=== PATIENT | female | born 1960 | race Caucasian/White ===

== ENCOUNTER 2023-06-06 07:50 | Inpatient (IN) | payer MEDICARE ==
[2023-06-06] MEDS ORDERED: Ondansetron 4 MG/2 ML SDV IVPUSH PRN ×2 (08:09→09:51)
[2023-06-06 08:15] LABS: BASOPHILS ABSOLUTE AUTO 0.09 K/uL (0.00-0.20); BASOPHILS PERCENT AUTO 0.4 % (0.0-2.0); EOSINOPHILS ABSOLUTE AUTO 0.18 K/uL (0.00-0.50); EOSINOPHILS PERCENT AUTO 0.8 % (0.0-5.0); HEMATOCRIT 41.3 % (34.0-46.0); HEMOGLOBIN 14.5 g/dL (11.7-15.5); LYMPHOCYTES ABSOLUTE AUTO 1.78 K/uL (0.50-3.50); MEAN CORPUSCULAR HEMOGLOBIN 32.2 pg (28.2-33.3); MEAN CORPUSCULAR HGB CONC 35.1 g/dL (31.7-36.0); MEAN CORPUSCULAR VOLUME 91.6 fL (84.0-98.0); MONOCYTES ABSOLUTE AUTO 1.99 K/uL (0.00-1.00); MONOCYTES PERCENT AUTO 8.9 % (2.0-14.0); NEUTROPHILS ABSOLUTE AUTO 18.31 K/uL (1.40-7.00); NEUTROPHILS PERCENT AUTO 81.9 % (45.0-80.0); PLATELET COUNT,PLT 329 K/uL (150-350); RED BLOOD CELL COUNT 4.51 M/uL (3.77-5.09); RED CELL DISTRIBUTION WIDTH 12.8 % (11.2-14.1); WHITE BLOOD CELL COUNT,WBC 22.4 K/uL (4.0-10.2)
[2023-06-06] MEDS: Sodium Chloride 0.9% 10 ML Syringe FLUSH PRN ×3 (08:16→09:28)
[2023-06-06] MEDS: HYDROmorphone 0.5 MG/0.5 ML Syringe IVPUSH PRN ×2 (08:16→09:27)
[2023-06-06 08:31] LABS: ALANINE AMINOTRANSFERASE,ALT 72 U/L (12-78); ALBUMIN 3.9 g/dL (3.4-5.0); ALKALINE PHOSPHATASE 148 IU/L (46-116); ASPARTATE AMNIOTRANSFERASE,AST 55 U/L (15-37); BILIRUBIN TOTAL 0.4 mg/dL (0.2-1.0); BLOOD UREA NITROGEN,BUN 13 mg/dL (7-18); CALCIUM 9.6 mg/dL (8.5-10.1); CARBON DIOXIDE,CO2 25.1 mmol/L (21.0-32.0); CHLORIDE,CL 98 mmol/L (98-107); CREATINE KINASE,CK 109 U/L (26-308); GLUCOSE RANDOM 161 mg/dL (70-99); POTASSIUM,K 3.4 mmol/L (3.5-5.1); PROTEIN TOTAL,TP 7.8 g/dL (6.4-8.2); SODIUM,NA 138 mmol/L (136-145)
[2023-06-06 08:34] LABS: ANION GAP 18.3 meq/L (7-15); ESTIMATED GFR 71 mL/min (>=60)
[2023-06-06] MEDS ORDERED: HYDROmorphone 0.5 MG/0.5 ML Syringe IVPUSH PRN (09:51)
[2023-06-06] MEDS ORDERED: VANCOmycin 1.5 GM/300 ML 1.5 GM in Premix Bag 1 BAG IV SCH (10:00)
[2023-06-06] MEDS ORDERED: Sodium Chloride 0.9% 1,000 ML IV ONE (10:01)
[2023-06-06] MEDS ORDERED: Sodium Chloride 0.9% 10 ML Syringe FLUSH PRN (10:01)
[2023-06-06 10:57] LABS: PROTHROMBIN TIME 9.5 SEC (9.0-11.1)
[2023-06-06] MEDS ORDERED: VANCOmycin 1.5 GM/300 ML 1.5 GM in Premix Bag 1 BAG IV ONE (11:00)
[2023-06-06 11:02] LABS: LACTIC ACID 2.3 mmol/L (0.4-2.0)
[2023-06-06] MEDS: methylPREDNISolone Sodium Succinate 40 MG/1 ML SDV IVPUSH SCH (11:24)
[2023-06-06] MEDS: Acetaminophen 500 MG Tab PO PRN ×2 (12:53→20:00)
[2023-06-06 17:03] LABS: APPEARANCE,URINE CLEAR; BILIRUBIN,URINE NEGATIVE (NEGATIVE); COLOR,URINE YELLOW; GLUCOSE,URINE NEGATIVE (NEGATIVE); KETONES,URINE NEGATIVE (NEGATIVE); LEUKOCYTE ESTERASE,URINE NEGATIVE (NEGATIVE); NITRITE,URINE NEGATIVE (NEGATIVE); OCCULT BLOOD,URINE MODERATE (NEGATIVE); PH,URINE 5.5 (5.0-9.0); PROTEIN,URINE 100 mg/dL (NEGATIVE); UROBILINOGEN,URINE 0.2 E.U./dL (0.2-1.0)
[2023-06-06 17:11] LABS: EPITHELIAL CELLS,URINE FEW /LPF; HYALINE CASTS,URINE FEW; WBC,URINE 0-5 /HPF
[2023-06-07] MEDS: Citalopram 20 MG Tab PO SCH (07:31)
[2023-06-07] MEDS: atorvaSTATin 40 MG Tab PO SCH (07:31)
[2023-06-07] MEDS: Acetaminophen 500 MG Tab PO PRN ×2 (07:31→17:15)
[2023-06-07] MEDS: Ezetimibe 10 MG Tab PO SCH (07:32)
[2023-06-07] MEDS: Hydrochlorothiazide 25 MG Tab PO SCH (07:32)
[2023-06-07] MEDS: amLODIPine 5 MG Tab PO SCH (07:32)
[2023-06-07] MEDS: Losartan 50 MG Tab PO SCH (07:32)
[2023-06-07] MEDS: methylPREDNISolone Sodium Succinate 40 MG/1 ML SDV IVPUSH SCH (07:33)
[2023-06-07] MEDS: Sodium Chloride 0.9% 10 ML Syringe FLUSH PRN ×2 (07:35→11:55)
[2023-06-07] MEDS ORDERED: Non-Formulary Medication 1 Each PO SCH (08:00)
[2023-06-07 08:07] LABS: BASOPHILS ABSOLUTE AUTO 0.04 K/uL (0.00-0.20); BASOPHILS PERCENT AUTO 0.2 % (0.0-2.0); EOSINOPHILS ABSOLUTE AUTO 0.01 K/uL (0.00-0.50); HEMATOCRIT 36.7 % (34.0-46.0); HEMOGLOBIN 12.9 g/dL (11.7-15.5); LYMPHOCYTES ABSOLUTE AUTO 1.57 K/uL (0.50-3.50); LYMPHOCYTES PERCENT AUTO 6.9 % (10.0-50.0); MEAN CORPUSCULAR HEMOGLOBIN 32.7 pg (28.2-33.3); MEAN CORPUSCULAR HGB CONC 35.1 g/dL (31.7-36.0); MEAN CORPUSCULAR VOLUME 92.9 fL (84.0-98.0); MONOCYTES ABSOLUTE AUTO 1.87 K/uL (0.00-1.00); MONOCYTES PERCENT AUTO 8.2 % (2.0-14.0); NEUTROPHILS ABSOLUTE AUTO 19.39 K/uL (1.40-7.00); NEUTROPHILS PERCENT AUTO 84.7 % (45.0-80.0); PLATELET COUNT,PLT 306 K/uL (150-350); RED BLOOD CELL COUNT 3.95 M/uL (3.77-5.09); RED CELL DISTRIBUTION WIDTH 12.6 % (11.2-14.1); WHITE BLOOD CELL COUNT,WBC 22.9 K/uL (4.0-10.2)
[2023-06-07] MEDS ORDERED: VANCOmycin 1.5 GM/300 ML 1.5 GM in Premix Bag 1 BAG IV SCH (11:00)
[2023-06-07] MEDS ORDERED: Vancomycin 1.5 GM in Sodium Chloride 0.9% 500 ML IV SCH (11:00)
[2023-06-08] MEDS: amLODIPine 5 MG Tab PO SCH (07:05)
[2023-06-08] MEDS: Citalopram 20 MG Tab PO SCH (07:05)
[2023-06-08] MEDS: Ezetimibe 10 MG Tab PO SCH (07:05)
[2023-06-08] MEDS: methylPREDNISolone Sodium Succinate 40 MG/1 ML SDV IVPUSH SCH (07:05)
[2023-06-08] MEDS: Sodium Chloride 0.9% 10 ML Syringe FLUSH PRN (07:05)
[2023-06-08] MEDS: Hydrochlorothiazide 25 MG Tab PO SCH (07:05)
[2023-06-08 07:06] VITALS: BP 155/72; PULSE 65
[2023-06-08] MEDS: Losartan 50 MG Tab PO SCH (07:06)
[2023-06-08] MEDS: atorvaSTATin 40 MG Tab PO SCH (07:06)
[2023-06-08 07:23] LABS: BASOPHILS ABSOLUTE AUTO 0.04 K/uL (0.00-0.20); BASOPHILS PERCENT AUTO 0.2 % (0.0-2.0); EOSINOPHILS ABSOLUTE AUTO 0.02 K/uL (0.00-0.50); EOSINOPHILS PERCENT AUTO 0.1 % (0.0-5.0); HEMATOCRIT 37.4 % (34.0-46.0); HEMOGLOBIN 12.9 g/dL (11.7-15.5); LYMPHOCYTES ABSOLUTE AUTO 2.48 K/uL (0.50-3.50); MEAN CORPUSCULAR HEMOGLOBIN 32.2 pg (28.2-33.3); MEAN CORPUSCULAR HGB CONC 34.5 g/dL (31.7-36.0); MEAN CORPUSCULAR VOLUME 93.3 fL (84.0-98.0); MONOCYTES PERCENT AUTO 7.9 % (2.0-14.0); NEUTROPHILS ABSOLUTE AUTO 13.73 K/uL (1.40-7.00); NEUTROPHILS PERCENT AUTO 77.8 % (45.0-80.0); PLATELET COUNT,PLT 318 K/uL (150-350); RED BLOOD CELL COUNT 4.01 M/uL (3.77-5.09); RED CELL DISTRIBUTION WIDTH 12.7 % (11.2-14.1); WHITE BLOOD CELL COUNT,WBC 17.7 K/uL (4.0-10.2)
== END 2023-06-08 08:55 | disposition home or self-care (01) | DRG 159 ==
LOC: LL.ED 07:50 → LL.MS 09:35
PROVIDERS: ADMIT Emergency Medicine; ATTEND Emergency Medicine
DX: K05.219 Aggressive periodontitis, localized, unspecified severity (principal); M26.69 Other specified disorders of temporomandibular joint; Z88.0 Allergy status to penicillin; K04.7 Periapical abscess without sinus; Z79.899 Other long term (current) drug therapy
CPT/HCPCS: 36415; 70450; 71045; 72125; 80053; 80202; 81001; 82550; 83605; 84484; 85025; 85610; 87040; 93005; 93010; 96374; 96375; 99285-25; A9270-GY; J1170; J2405; J2920; J3370; J3490; J7030